=== PATIENT | female | born 1960 | race Asian ===

== ENCOUNTER 2017-01-17 11:34 | Inpatient (IN) | payer BC ==
[~2017-01-17] VITALS: Ht 154.9 cm; Wt 56.6 kg
[2017-01-18] MEDS ORDERED: VITA500T4 PO (06:50)
[2017-01-18] MEDS ORDERED: VITA1000 PO (06:50)
[2017-01-18] MEDS ORDERED: LACTCAP8 PO (06:50)
[2017-01-18] MEDS ORDERED: CALC600T25 PO (06:50)
[2017-01-18] MEDS ORDERED: [UNRECOGNIZED DRUG - CODE] PO (06:50)
[2017-01-18] MEDS ORDERED: NORV2.5T PO (06:53)
[2017-01-18 06:55] VITALS: BP 159/84; PULSE 66; RESP 16; TEMP 98.2; O2SAT 99
--- NOTE | 2017-01-18 06:58 | HHI.DCPOC ---
Discharge Care Plan Diagnosis: (1) Status post total knee replacement, right (2) Primary localized osteoarthrosis, lower leg Your Health Problems Are: Difficulty with ADL Goals to Promote Your Health * To prevent worsening of your condition and complications * To maintain your health at the optimal level Directions to Meet Your Goals Take your medications as prescribed Follow your dietary instruction Follow activity as directed Keep your appointments as scheduled Take your immunizations and boosters as scheduled If your symptoms worsen call your PCP, if no PCP go to Urgent Care Center or Emergency Room Smoking is Dangerous to Your Health. Avoid second hand smoke Call the 24-hour hour crisis hotline for domestic abuse at Lamonte Montoya Jan 18, 2017 06:58
--- NOTE | 2017-01-18 06:59 | HHI.FF ---
Face to Face Verification Diagnosis: (1) Primary localized osteoarthrosis, lower leg (2) Status post total knee replacement, right Physical Therapy Gait training, Transfer training, bed to chair Knee: Total knee Right LE Weight Bearing: WB as tolerated Right LE Range of Motion: Active ROM Nursing Nursing: Pratima teaching, Dressing changes Dressing Changes: Daily dressing change I have seen patient Shashi Gomez on 01/18/17. My clinical findings support the need for the requested home health care services because: Limited ability to care for self High risk of falls I certify that my clinical findings support that this patient is homebound because: Post-op weakness Unsteady gait/balance Lamonte Montoya Jan 18, 2017 06:59
[2017-01-18] MEDS ORDERED: CPMMACHINE (07:00)
[2017-01-18] MEDS ORDERED: WALKER WHEELS/F1 MIS (07:00)
[2017-01-18] MEDS ORDERED: COMMODE 3-IN-11 MIS (07:00)
[2017-01-18] MEDS ORDERED: DEXAMETHASONE SOD PHOS 20 MG/5 ML VIAL ONE (07:06)
[2017-01-18] MEDS ORDERED: SODIUM CHLOR 0.9% 250 ML INJ 250 ML ONE (07:06)
[2017-01-18] MEDS ORDERED: ceFAZolin 2 GM PREMIX 50 ML ONE (07:06)
[2017-01-18] MEDS ORDERED: VANCOMYCIN HCL 1000 MG VIAL ONE (07:06)
[2017-01-18] MEDS ORDERED: MIDAZOLAM HCL 5 MG/5 ML VIAL ONE (07:49)
[2017-01-18] MEDS ORDERED: GENTAMICIN SULFATE 80 MG/2 ML VIAL ONE (07:58)
[2017-01-18] MEDS ORDERED: BUPIVACAINE LIPOSOME PF 1.3% 20 ML VIAL ONE (08:05)
[2017-01-18] MEDS ORDERED: DEXAMETHASONE SOD PHOS PF 10 MG/ML VIAL IV ONE (08:06)
[2017-01-18] MEDS ORDERED: TRANEXAMIC ACID INJ 500 MG in SODIUM CHLORIDE 0.9% INJ 100 ML IV SCH (08:30)
[2017-01-18] MEDS ORDERED: BUPIVACAINE LIPOSO PF 1.3% INJ 20 ML in SODIUM CHLORIDE 0.9% INJ 40 ML PERIART SCH (08:30)
[2017-01-18] MEDS ORDERED: ceFAZolin 2 GM PREMIX 50 ML IV SCH (09:30)
[2017-01-18] MEDS ORDERED: ROPIVACAINE PERI-ARTICULAR INJECTION. PERIART SCH ×5 (09:30)
[2017-01-18] MEDS ORDERED: VANCOMYCIN 1000 MG/NS 250 ML (for <70 kg) IV SCH ×2 (09:30)
[2017-01-18] MEDS ORDERED: DEXAMETHASONE SOD PHOS 20 MG/5 ML VIAL IV SCH (10:00)
[2017-01-18] MEDS ORDERED: ZOLPIDEM TARTRATE 5 MG TAB PO PRN (10:15)
[2017-01-18] MEDS ORDERED: MORPHINE SULFATE 4 MG/ML INJ IV PUSH PRN (10:15)
[2017-01-18] MEDS ORDERED: BISACODYL 10 MG SUPP PR PRN (10:15)
[2017-01-18] MEDS ORDERED: TRANEXAMIC ACID INJ 0 MG in SODIUM CHLORIDE 0.9% INJ 100 ML IV SCH (10:15)
[2017-01-18] MEDS ORDERED: Post-op Orders (for Pharmacy) MISC XX ONE (10:15)
[2017-01-18] MEDS ORDERED: ALUMINUM/MAGNESIUM/SIMETH 30 ML CUP PO PRN (10:15)
[2017-01-18] MEDS ORDERED: ONDANSETRON HCL 4 MG/2 ML VIAL IVP PRN (10:15)
[2017-01-18] MEDS ORDERED: MAGNESIUM HYDROXIDE SUSP 30 ML CUP PO PRN (10:15)
[2017-01-18] MEDS ORDERED: NALOXONE HCL 0.4 MG/ML AMP IV PRN (10:15)
[2017-01-18] MEDS ORDERED: diphenhydrAMINE HCL 50 MG/ML VIAL IV PRN (10:15)
[2017-01-18] MEDS ORDERED: ACETAMINOPHEN/HYDROcodone 325 MG/5 MG TAB PO PRN (10:15)
[2017-01-18] MEDS ORDERED: SODIUM CHLORIDE 0.9% FLUSH 5 ML FLUSH IVF PRN (10:15)
--- NOTE | 2017-01-18 10:17 | PD.OP ---
cc: Lakhwinder Jeffrey MD Operative Report Date of Surgery: Jan 18, 2017 Preoperative Diagnosis: Right knee severe osteoarthritis Postoperative Diagnosis: Same Procedure: Right total knee arthroplasty Anesthesia: Adductor canal block and general Surgeon: Lakhwinder Jeffrey Digital Sales Executive(s): PATRICIA Bowen The surgical procedure was assisted by my Advanced Registered Nurse Practitioner. My TARGET NETWORK ANALYST presence was necessary throughout this case for the manipulation and positioning of the surgical extremity. My TARGET NETWORK ANALYST was assisting me throughout the duration of this procedure. The skill set of an Advance Registered Nurse Practitioner was medically necessary to complete this procedure. During the surgical case, the neurosurgical nurse was working at the back table and the Advance Registered Nurse Practitioner was directly assisting me. Operation and Findings: IMPLANTS: DePuy Attune: Patella: size 32. Femur, posterior stabilized size 5 narrow. Tibia, rotating platform size 3. Tibial insert, rotating platform, posterior stabilized size 8 mm thickness. ESTIMATED BLOOD LOSS: 100 cc TOURNIQUET TIME: 36 minutes at 250 mmHg pressure. JUSTIFICATION FOR PROCEDURE: The patient has end-stage osteoarthritis to the knee. There is an attached conservative measures pathway form in the chart that describes the nonoperative measures that were undertaken prior to consideration of surgical management. The patient understood the risks and benefits of surgical management. See my office notes for further details PROCEDURE: The patient was brought back to the operative theatre. Adequate anesthesia was obtained. The patient received intravenous vancomycin and Ancef. The lower extremity was prepped and draped in the usual sterile fashion.The leg was exsanguinated, the tourniquet was raised. A standard anterior incision was performed followed by medial parapatellar arthrotomy was performed. End-stage arthritis was identified. Osteotomy of the patella was performed. We drilled holes for the patella. We trialed the patella component. We placed an intramedullary guide into the distal femur. We ultimately resected 12 mm off of the distal femur in 5 degrees of valgus. The remnants of the ACL and PCL were resected. Osteotomy of the proximal tibia was performed, resecting 5 mm off of the medial side. This was done with 3 degrees of posterior slope using an extramedullary guide. The distal end of the guide was placed in the mid aspect of the ankle. The femur was sized, and four chamfer cuts were completed in 3 of external rotation. We then cut the central box in the distal femur to replace the PCL. We resected the remnants of the menisci and removed osteophytes off of the femur and tibia. We then trialed the knee. We punched the tibia for the keel, and then used standard technique to cement in components. Excess cement was removed. We trialed the knee again and the final polyethylene thickness was chosen to provide extension to 0 degrees, and flexion of 140 degrees to gravity. The ligaments were appropriately balanced. Lateral release was not necessary to obtain excellent patellofemoral tracking. The tourniquet was released and adequate hemostasis was obtained. An intra- articular injection of a ropivacaine cocktail was injected. The posterior knee was inspected for excess cement, which was removed. The final polyethylene was put into position after thorough irrigation. We then closed deep fascia with a #2 Stratafix followed by skin with 2-0 Vicryl followed by jono. Postop plan is to weight-bear as tolerated. DVT prophylaxis will be performed with Bri, SHAD deshpande, early mobilization, and Lovenox followed by aspirin. Lakhwinder Jeffrey MD Jan 18, 2017 10:17
[2017-01-18] MEDS ORDERED: ENOX40P SQ (10:19)
[2017-01-18] MEDS ORDERED: ASPI325T PO (10:19)
[2017-01-18] MEDS ORDERED: NORC5TAB PO (10:19)
[2017-01-18] MEDS ORDERED: DO NOT ADM ANY ANTICOAGULANT DRUGS XX PRN (10:44)
[2017-01-18] MEDS ORDERED: PILL SPLITTER OTHER PRN (10:45)
[2017-01-18] MEDS ORDERED: fentaNYL CITRATE 250 MCG/5 ML AMP ONE (10:46)
[2017-01-18] MEDS: SODIUM CHLOR 0.9% 1000 ML INJ 1,000 ML IV SCH ×2 (10:50→20:35)
[2017-01-18] MEDS ORDERED: *morphine SULFATE 8 MG/ML PERIprocedure ONLY ONE ×2 (10:55→13:03)
--- NOTE | 2017-01-18 11:55 | RADRPT ---
EXAM DATE/TIME: 01/18/2017 10:52 [facility] COMPARISON: No previous studies available for comparison. INDICATIONS : Post op right knee surgery. MEDICAL HISTORY : None. SURGICAL HISTORY : None. ENCOUNTER: Initial ACUITY: 1 day PAIN SCORE: 2/10 LOCATION: Right knee FINDINGS: Patient is immediately postop right total knee arthroplasty. Alignment appears normal. No fracture or other acute complication demonstrated. CONCLUSION: Expected radiographic appearance right total knee arthroplasty. No acute complication demonstrated. Siva Zhang MD on January 18, 2017 at 11:53 Board Certified Radiologist. This report was verified electronically.
[2017-01-18] MEDS ORDERED: PROPOFOL 200 MG/20 ML AMP IV ONE (12:00)
[2017-01-18] MEDS ORDERED: ONDANSETRON HCL 4 MG/2 ML VIAL IV PUSH ONE (12:00)
[2017-01-18] MEDS ORDERED: ePHEDrine/NS 25 MG/5 ML SYR IV ONE (12:00)
[2017-01-18 16:00] VITALS: BP 121/79; PULSE 84; RESP 16; TEMP 97.1; O2SAT 100
--- NOTE | 2017-01-18 17:31 | PD.CONS ---
HPI Service [facility] Consult Requested By Dr. Jeffrey Reason for Consult medical management Primary Care Physician Dennis Singh MD Diagnoses: History of Present Illness This is a 56 year female with hx of OA, HTN. Pt. admitted for elective surgery. Pt. underwent right TKA. Tolerated procedure well, minimal pain. Having some nausea, no vomiting. She is usually in good health, no recent fever, chills. Hospitalists consult requested for medical management (Heidi Reid) Past Family Social History Past Medical History Hypertension Osteoarthritis Past Surgical History Dental extraction Reported Medications Reported Meds & Active Scripts Active [place] (Hydrocodone-Acetaminophen) 5-325 mg Tab 1-2 Tab PO Q4H PRN Aspirin 325 Mg Tab 325 Mg PO DAILY Start Aspirin after Lovenox is completed. Lovenox Inj (Enoxaparin Sodium) 40 Mg/0.4 Ml Syr 40 Mg SQ DAILY Start Aspirin after Lovenox is completed. Reported Norvasc (Amlodipine Besylate) 2.5 Mg Tab 2.5 Mg PO DAILY Calcium (Calcium Carbonate) 600 Mg Tab 1 Tab PO DAILY Gas Relief Extra Strength (Simethicone) 125 Mg Cap 1 Cap PO DAILY Probiotic (Lactobacillus Acidophilus) 1 Cap Cap 1 Cap PO BID Vitamin B-12 (Cyanocobalamin) 500 Mcg Tab 500 Mcg PO DAILY Vitamin D-1000 (Cholecalciferol) 1,000 Unit Tab 1,000 Units PO DAILY (Heidi Reid) Allergies: Coded Allergies: No Known Allergies (Unverified , 01/18/17) Active Ordered Medications Inpatient Medications Acetaminophen/ Hydrocodone Bitart ([place] 5-325 Mg) 2 tab Q4H PRN PO PAIN SCALE 5 TO 10; Start 01/18/17 at 10:15 Al Hydrox/Mg Hydrox/Simethicone (Mag-Al Plus Susp Liq) 30 ml Q6H PRN PO INDIGESTION; Start 01/18/17 at 10:15 Amlodipine Besylate 2.5 mg 2.5 mg DAILY PO ; Start 01/19/17 at 09:00 Bisacodyl (Dulcolax Supp) 10 mg DAILY PRN ND CONSTIPATION; Start 01/18/17 at 10: 15 Cefazolin Sodium/ Dextrose 50 ml @ 100 mls/hr WIRE CUTTER IV ; Start 01/18/17 at 09 :30; Stop 01/21/17 at 09:29 Cefazolin Sodium/ Sodium Chloride (Ancef Inj/NS Inj) 100 ml @ 200 mls/hr Q6H IV Last administered on 01/18/17t 13:45; Start 01/18/17 at 14:00; Stop 01/19/17 at 02:29 Dexamethasone Sodium Phosphate (Decadron Inj) 10 mg ONCE ONCE IV ; Start at 07:45; Stop 01/19/17 at 07:46 Diphenhydramine HCl (Benadryl Inj) 25 mg Q6H PRN IV ITCHING; Start 01/18/17 at 10:15 Docusate Sodium (Colace) 100 mg BID PO ; Start 01/19/17 at 21:00 Enoxaparin Sodium (Lovenox Inj) 40 mg Q24H SQ ; Start 01/19/17 at 10:00; Stop at 10:01 IV Flush (NS Flush) 2 ml UNSCH PRN IVF FLUSH AFTER USING IV ACCESS; Start at 10:15 IV Flush 2 ml 2 ml BID IVF ; Start 01/18/17 at 21:00 Magnesium Hydroxide (Milk Of Magnesia Liq) 30 ml DAILY PRN PO CONSTIPATION; Start 01/18/17 at 10:15 Miscellaneous (Pill Splitter) 1 ea UNSCH PRN OTHER SEE LABEL COMMENTS; Start at 10:45 Miscellaneous Information ALL NURSING DEPARTME... UNSCH PRN XX SEE LABEL COMMENTS; Start 01/18/17 at 10:44; Stop 01/19/17 at 10:43 Miscellaneous Information (Post-op Orders (for Pharmacy)) STAT ONCE XX ; Start 01/18/17 at 10:15; Stop 01/18/17 at 10:33; Status DC Morphine Sulfate (Morphine Inj) 2 mg Q3H PRN IV PUSH pain greater than 5; Start 01/18/17 at 10:15 Multivitamins/ Minerals Therapeutic (Theragran M Tab) 1 tab BID PO ; Start at 21:00; Stop 03/20/17 at 20:59 Naloxone HCl (Narcan Inj) 0.4 mg UNSCH PRN IV RESPIRATORY RATE LESS THAN 10; Start 01/18/17 at 10:15 Ondansetron HCl (Zofran Inj) 4 mg Q6H PRN IVP NAUSEA OR VOMITING Last administered on 01/18/17 16:14; Start 01/18/17 at 10:15 Povidone Iodine 1 applic 1 applic ONCE TOP ; Start 01/18/17 at 09:30; Stop at 09:29 Ropivacaine/ Ketorolac Tromethamine/ Epinephrine HCl/ Clonidine/Sodium Chloride (Naropin 0.5% Pf Inj/Toradol Inj/ Adrenalin (1:1000) Inj/ Duraclon Inj/NS Inj) 100 ml @ 200 mls/hr ONCE PERIART Last administered on 01/18/17 09:45; Start at 09:30; Stop 01/18/17 at 15:30; Status DC Sodium Chloride (NS 1000 ml Inj) 1,000 ml @ 100 mls/hr Q10H IV Last administered on 01/18/17 10:50; Start 01/18/17 at 11:00 Tranexamic Acid/ Sodium Chloride (Cyklokapron Inj/ NS Inj) 105 ml @ 200 mls/hr Q3H IV Last administered on 01/18/17 08:50; Start 01/18/17 at 08:30; Stop at 12:03; Status DC Vancomycin HCl 1000 mg/Sodium Chloride 250 ml @ 250 mls/hr WIRE CUTTER IV ; Start 01/18/17 at 09:30; Stop 01/21/17 at 09:29 Zolpidem Tartrate (Ambien) 5 mg HS PRN PO SLEEP; Start 01/18/17 at 10:15 (Heidi Reid) Physical Exam Vital Signs Vital Signs Date Time Temp Pulse Resp B/P Pulse Ox O2 Delivery O2 Flow Rate FiO2 01/18/17 15:39 98.7 84 16 120/93 99 Nasal Cannula 2 01/18/17 13:36 98.0 82 16 130/71 96 Nasal Cannula 2 01/18/17 13:00 96.2 94 16 158/90 98 Nasal Cannula 2 01/18/17 12:00 83 16 146/84 98 Nasal Cannula 2 01/18/17 11:30 94 16 156/88 98 Nasal Cannula 2 01/18/17 11:15 104 16 154/82 99 Nasal Cannula 2 01/18/17 11:00 106 16 150/84 99 Nasal Cannula 2 01/18/17 10:45 86 16 155/79 97 Nasal Cannula 2 01/18/17 10:37 97.6 112 16 158/96 99 Nasal Cannula 2 01/18/17 06:55 98.2 66 16 159/84 99 Physical Exam GENERAL: This is a well-nourished, well-developed patient, in no apparent distress. SKIN: No rashes, ecchymoses or lesions. Cool and dry. HEAD: Atraumatic. Normocephalic. No temporal or scalp tenderness. EYES: Pupils equal round and reactive. Extraocular motions intact. No scleral icterus. No injection or drainage. ENT: Nose without bleeding, purulent drainage or septal hematoma. Throat without erythema, tonsillar hypertrophy or exudate. Uvula midline. Airway patent. NECK: Trachea midline. No JVD or lymphadenopathy. Supple, nontender, no meningeal signs. CARDIOVASCULAR: Regular rate and rhythm without murmurs, gallops, or rubs. RESPIRATORY: Clear to auscultation. Breath sounds equal bilaterally. No wheezes , rales, or rhonchi. GASTROINTESTINAL: Abdomen soft, non-tender, nondistended. No hepato-splenomegaly , or palpable masses. No guarding. MUSCULOSKELETAL: Right leg in CPM, intact sensation to right foot, right pedal pulse 2+. Able to dorsiflex right foot. No other joint abnormalities. Left pedal pulse 2+ NEUROLOGICAL: Awake alert oriented 3. No focal deficits. Laboratory Laboratory Tests Test 01/18/17 01/18/17 07:00 08:07 Blood Type B POSITIVE B POSITIVE Antibody Screen NEGATIVE Crossmatch Leukocyte-Reduced Red Blood Cells Blood Bank Comment (Heidi Reid) Imaging Last Impressions Knee X-Ray 01/18/17 1012 Signed Impressions: Service Date/Time: Wednesday, January 18, 2017 10:52 - CONCLUSION: Expected radiographic appearance right total knee arthroplasty. No acute complication demonstrated. Siva Zhang MD (Heidi Reid) A/P Diagnosis: (1) Status post total knee replacement, right (2) Primary localized osteoarthrosis, lower leg (3) HTN (hypertension) Assessment and Plan Thanks you for this consultation 56-year-old male with history of osteoarthritis, status post right total knee arthroplasty. -Continue postoperative orthopedic care Physical therapy Lovenox for DVT prophylaxis History hypertension, stable Continue with home medications Monitor BP closely Repeat labs in the morning Lovenox for DVT prophylaxis Plan of care discussed with the patient, attending and registered nurse. Further management of the patient will be dependent on the hospital course This patient was seen by myself and Dr. Menezes, this consultation is written on his behalf (Heidi Reid) Assessment and Plan Patient seen and examined Thank you for this consult Plan as follows Pain management Physical therapy Bowel regimen Follow labs Keep hemoglobin above 8 Replace electrolytes as needed Discussed with patient Discussed with nurse We will follow daily while hospitalized (Edith Menezes MD) Problem Qualifiers (1) Primary localized osteoarthrosis, lower leg: Qualified Code: M17.11 - Primary localized osteoarthrosis, lower leg, right (2) HTN (hypertension): Qualified Code: I10 - Essential hypertension Heidi Reid Jan 18, 2017 17:31 Edith Menezes MD Jan 18, 2017 18:15
--- NOTE | 2017-01-18 18:29 | EKG ---
Date Performed: 01/18/2017 Time Performed: 07:03:07 PTAGE: 56 years EKG: Sinus rhythm LOW QRS VOLTAGE IN PRECORDIAL LEADS BORDERLINE ECG NO PREVIOUS TRACING DOCTOR: Gordo Samayoa Interpretating Date/Time 01/18/2017 18:28:31
[2017-01-18 20:25] VITALS: BP 144/72; PULSE 73; RESP 19; TEMP 96.5; O2SAT 100
[2017-01-18] MEDS: SODIUM CHLORIDE 0.9% FLUSH 5 ML FLUSH IVF SCH (20:31)
[2017-01-18 20:38] VITALS: O2SAT 95
[2017-01-19] VITALS (7 sets, daily range): BP systolic 96–141; BP diastolic 60–75; PULSE 64–94; RESP 16–19; TEMP 96–98.2; O2SAT 96–100
[2017-01-19 06:22] LABS: HEMATOCRIT 30.3 % (35.0-46.0); MEAN CELL VOLUME 77.3 FL (80.0-100.0); MEAN CORPUSCULAR HEMOGLOBIN 24.3 PG (27.0-34.0); MEAN CORPUSCULAR HGB CONC 31.4 % (32.0-36.0); PLATELET COUNT 276 TH/MM3 (150-450); RED BLOOD COUNT 3.92 MIL/MM3 (4.00-5.30); RED CELL DISTRIBUTION WIDTH 15.2 % (11.6-17.2); WHITE BLOOD COUNT 14.7 TH/MM3 (4.0-11.0)
[2017-01-19 06:28] LABS: REVIEW FLAG FINAL
[2017-01-19 06:49] LABS: BICARBONATE 27.7 MEQ/L (21.0-32.0); POTASSIUM 4.1 MEQ/L (3.5-5.1)
[2017-01-19] MEDS ORDERED: DEXAMETHASONE SOD PHOS 20 MG/5 ML VIAL IV ONE (07:45)
[2017-01-19] MEDS: POVIDONE IODINE 7.5% SCRUB 118 ML BOTTLE TOP SCH (09:30)
[2017-01-19] MEDS: amLODIPine BESYLATE 5 MG TAB PO SCH (10:30)
[2017-01-19] MEDS: ENOXAPARIN SODIUM 40 MG/0.4 ML SYRINGE SQ SCH (10:30)
[2017-01-19] MEDS: SODIUM CHLORIDE 0.9% FLUSH 5 ML FLUSH IVF SCH ×2 (10:31→20:10)
[2017-01-19] MEDS: SODIUM CHLOR 0.9% 1000 ML INJ 1,000 ML IV SCH ×2 (10:46→17:00)
--- NOTE | 2017-01-19 10:47 | HHI.PR ---
Subjective Remarks Up in chair Alert cooperative Sensation of right knee numbness Appetite good No Nausea vomiting Objective Objective Results - Vital Signs Date Time Temp Pulse Resp B/P Pulse Ox O2 Delivery O2 Flow Rate FiO2 01/19/17 08:18 96.7 94 16 135/75 100 01/19/17 04:26 96.0 68 18 122/73 100 01/19/17 00:36 96.0 64 18 96/60 100 01/18/17 20:38 95 Nasal Cannula 2.00 01/18/17 20:25 96.5 73 19 144/72 100 01/18/17 16:00 97.1 84 16 121/79 100 01/18/17 15:39 98.7 84 16 120/93 99 Nasal Cannula 2 01/18/17 13:36 98.0 82 16 130/71 96 Nasal Cannula 2 01/18/17 13:00 96.2 94 16 158/90 98 Nasal Cannula 2 01/18/17 12:00 83 16 146/84 98 Nasal Cannula 2 01/18/17 11:30 94 16 156/88 98 Nasal Cannula 2 01/18/17 11:15 104 16 154/82 99 Nasal Cannula 2 01/18/17 11:00 106 16 150/84 99 Nasal Cannula 2 01/18/17 10:45 86 16 155/79 97 Nasal Cannula 2 I/O 01/18/17 01/18/17 01/18/17 01/19/17 01/19/17 01/19/17 07:00 15:00 23:00 07:00 15:00 23:00 Intake Total 1319 ml 1024 ml 480 ml Output Total 700 ml 1400 ml 800 ml Balance 619 ml -376 ml -320 ml Intake Oral 100 ml 750 ml 480 ml IV Total 419 ml 274 ml Other 800 ml Output Urine Total 650 ml 1400 ml 800 ml Estimated Blood Loss 50 ml # Bowel Movements 0 0 Result Diagram: 01/19/1751901/19/17 0520 ROS General: Weakness (generalized postop), Other (10 point ROS done. Mild dizziness, otherwise systems unremarkable) Neuro/MS: Lightheaded Physical Exam Physical Exam PHYSICAL EXAMINATION GENERAL: This is a slim, well-developed, well-nourished female who appears to be in no acute distress. She is alert and awake, talkative HEAD: Normocephalic without any lesion or mass noted. Facial features appear symmetric. OROPHARYNGEAL: Oropharynx without erythema or edema. NECK: Supple. No nuchal rigidity or lymphadenopathy. Trachea midline without deviation. CARDIAC: Regular rhythm, regular rate, S1 and S2 are heard. Murmur none no gallops or rubs. LUNGS: Clear to auscultation bilaterally. No wheeze, no rhonchi or rale. No use of accessory muscles on inspiration or expiration. ABDOMEN: Soft, nontender, no organomegaly or masses. Bowel sounds are heard in all four quadrants. No rebound. No guarding. EXTREMITIES: Mild edema right lower leg, none at right ankle Pulses equal bilateral. No cyanosis. NEUROLOGICAL: Patient mood and affect appropriate. No focal deficit SKIN:Warm and moist, dry Objective Remarks I got a little lightheaded when I first got up but I feel better now A/P Assessment and Plan (1) Status post total knee replacement, right (2) Primary localized osteoarthrosis, lower leg (3) HTN (hypertension) 4. Dizziness, transient, possible orthostatic hypotension 56-year-old male with history of osteoarthritis, status post right total knee arthroplasty. -Continue postoperative orthopedic care including pain management Physical therapy Lovenox postop Mild dizziness, when out of bed. Sitting in chair for a few minutes. Sensation past for now. BP systolic noted in the 90s during this event. Encouraged by mouth fluids, safety measures getting up slowly. Will monitor orthostatic BP went up today Monitor labs, dietary intake, vital signs which are normal ranges now. Discharge Planning Probable rehabilitation Discussed With: Nurse, Family (patient), Other (Dr. Menezes, seen on his behalf) Betty Singh Jan 19, 2017 10:47
--- NOTE | 2017-01-19 13:07 | PD.ORT.PN ---
Subjective Post Op Day #: 1 Subjective Remarks Patient is resting in bed using CPM. Patient is c/o moderate right calf pain and mild knee pain. Family at bedside. Objective Vitals Vital Signs Date Time Temp Pulse Resp B/P Pulse Ox O2 Delivery O2 Flow Rate FiO2 01/19/17 10:16 97 21 01/19/17 08:18 96.7 94 16 135/75 100 01/19/17 04:26 96.0 68 18 122/73 100 01/19/17 00:36 96.0 64 18 96/60 100 01/18/17 20:38 95 Nasal Cannula 2.00 01/18/17 20:25 96.5 73 19 144/72 100 01/18/17 16:00 97.1 84 16 121/79 100 01/18/17 15:39 98.7 84 16 120/93 99 Nasal Cannula 2 01/18/17 13:36 98.0 82 16 130/71 96 Nasal Cannula 2 01/18/17 13:00 96.2 94 16 158/90 98 Nasal Cannula 2 I/O 01/18/17 01/18/17 01/18/17 01/19/17 01/19/17 01/19/17 07:00 15:00 23:00 07:00 15:00 23:00 Intake Total 1319 ml 1024 ml 480 ml Output Total 700 ml 1400 ml 800 ml Balance 619 ml -376 ml -320 ml Intake Oral 100 ml 750 ml 480 ml IV Total 419 ml 274 ml Other 800 ml Output Urine Total 650 ml 1400 ml 800 ml Estimated Blood Loss 50 ml # Bowel Movements 0 0 Result Diagram: 01/19/17 0520 01/19/17 0520 Procedures Right TKA Objective Remarks The patient's dressing was changed with scant serosanguineous drainage. Incision is well approximated with surgical clips intact. No redness or s/s of infection. EHL/TA/G intact. 2+ pedal pulse. Calf is mildly swollen and tender to palpation. Mild swelling. + SILT. Assessment & Plan Ortho Post Op Day #: 1 Problem List: Assessment and Plan POD #1: right TKA 1. WBAT RLE 2. Lovenox for DVT prophylaxis 3. Ice to the right knee PRN 4. US to RLE to r/o DVT secondary to calf pain and swelling 5. Anticipatory discharge home with home health on Monday. Lamonte Montoya Jan 19, 2017 13:07
--- NOTE | 2017-01-19 16:58 | RADRPT ---
EXAM DATE/TIME: 01/19/2017 15:45 [facility] COMPARISON: No previous studies available for comparison. INDICATIONS : Right leg pain. MEDICAL HISTORY : Hypertension. SURGICAL HISTORY : Right knee surgery. ENCOUNTER: Initial ACUITY: 1 day PAIN SCORE: 7/10 LOCATION: Right leg TECHNIQUE: Venous ultrasound of the leg was performed from the inguinal ligament to the proximal calf. Real-time, color Doppler and spectral tracing, compression and augmentation techniques were us ed. FINDINGS: There is normal compressibility of the deep venous system from the inguinal region to the proximal ca lf. No echogenic clot is seen in the lumen of the common femoral, femoral, popliteal, and posterior tibial veins. There is a normal response of the venous system to proximal and distal augmentation an d respiration. CONCLUSION: No evidence of DVT. Rock Sandy MD on January 19, 2017 at 16:55 Board Certified Radiologist. This report was verified electronically.
[2017-01-19] MEDS: ACETAMINOPHEN/HYDROcodone 325 MG/5 MG TAB PO PRN (20:09)
[2017-01-19] MEDS: MULTIVITAMINS/MINERALS THERAPEUTIC TAB PO SCH (20:09)
[2017-01-19] MEDS: DOCUSATE SODIUM 100 MG CAP PO SCH (20:09)
[2017-01-20 00:21] VITALS: BP 118/62; PULSE 76; RESP 18; TEMP 96.5; O2SAT 98
[2017-01-20] MEDS: SODIUM CHLOR 0.9% 1000 ML INJ 1,000 ML IV SCH (03:00)
[2017-01-20] MEDS: ACETAMINOPHEN/HYDROcodone 325 MG/5 MG TAB PO PRN ×3 (05:26→18:41)
[2017-01-20 08:00] VITALS: BP 150/82; PULSE 67; RESP 17; TEMP 97; O2SAT 100
[2017-01-20] MEDS: SODIUM CHLORIDE 0.9% FLUSH 5 ML FLUSH IVF SCH (09:00)
[2017-01-20] MEDS: POVIDONE IODINE 7.5% SCRUB 118 ML BOTTLE TOP SCH (09:30)
[2017-01-20 10:01] LABS: HEMATOCRIT 28.5 % (35.0-46.0); MEAN CELL VOLUME 76.6 FL (80.0-100.0); MEAN CORPUSCULAR HEMOGLOBIN 24.4 PG (27.0-34.0); MEAN CORPUSCULAR HGB CONC 31.9 % (32.0-36.0); PLATELET COUNT 280 TH/MM3 (150-450); RED BLOOD COUNT 3.72 MIL/MM3 (4.00-5.30); RED CELL DISTRIBUTION WIDTH 15.5 % (11.6-17.2); WHITE BLOOD COUNT 11.7 TH/MM3 (4.0-11.0)
[2017-01-20 10:04] LABS: REVIEW FLAG FINAL
[2017-01-20] MEDS: DOCUSATE SODIUM 100 MG CAP PO SCH (10:32)
[2017-01-20] MEDS: amLODIPine BESYLATE 5 MG TAB PO SCH (10:32)
[2017-01-20] MEDS: MULTIVITAMINS/MINERALS THERAPEUTIC TAB PO SCH (10:32)
[2017-01-20] MEDS: ENOXAPARIN SODIUM 40 MG/0.4 ML SYRINGE SQ SCH (10:32)
[2017-01-20 10:56] LABS: ALKALINE PHOSPHATASE 78 U/L (45-117); ALT (GPT) 20 U/L (10-53); ANION GAP 8 MEQ/L (5-15); AST (GOT) 14 U/L (15-37); BICARBONATE 28.6 MEQ/L (21.0-32.0); BLOOD UREA NITROGEN 15 MG/DL (7-18); CHLORIDE 102 MEQ/L (98-107); GLOMERULAR FILTRATION RATE 89 ML/MIN (>89); INDIRECT BILIRUBIN 0.3 MG/DL (0.0-0.8); MAGNESIUM 2.3 MG/DL (1.5-2.5); POTASSIUM 3.2 MEQ/L (3.5-5.1); SODIUM (NA) 139 MEQ/L (136-145); TOTAL BILIRUBIN ADULT 0.4 MG/DL (0.2-1.0); TRANSFERRIN IRON PROFILE 251 MG/DL (200-360)
[2017-01-20 12:00] VITALS: BP 151/74; PULSE 75; RESP 17; TEMP 97.1; O2SAT 100
[2017-01-20] MEDS ORDERED: POTASSIUM CHLORIDE 25 MEQ EFFERVESCENT TAB PO ONE ×3 (13:30→18:00)
--- NOTE | 2017-01-20 15:09 | PD.ORT.PN ---
Subjective Post Op Day #: 2 Subjective Remarks Patient is resting in bed with mild knee pain. Patient notes less right calf pain. Family at bedside. Objective Vitals Vital Signs Date Time Temp Pulse Resp B/P Pulse Ox O2 Delivery O2 Flow Rate FiO2 01/20/17 12:00 97.1 75 17 151/74 100 01/20/17 08:15 21 01/20/17 08:00 97.0 67 17 150/82 100 01/20/17 00:21 96.5 76 18 118/62 98 01/19/17 20:21 97.0 84 19 141/65 96 01/19/17 16:20 98.2 82 16 129/70 98 I/O 01/19/17 01/19/17 01/19/17 01/20/17 01/20/17 01/20/17 07:00 15:00 23:00 07:00 15:00 23:00 Intake Total 480 ml 860 ml 480 ml 720 ml Output Total 800 ml Balance -320 ml 860 ml 480 ml 720 ml Intake Oral 480 ml 860 ml 480 ml 720 ml Output Urine Total 800 ml # Voids 6 2 1 # Bowel Movements 0 0 0 0 Result Diagram: 01/20/1791301/20/17913 Procedures Right TKA Objective Remarks The patient's dressing was changed with no drainage. Incision is well approximated with surgical clips intact. No redness or s/s of infection. EHL/ TA/G intact. 2+ pedal pulse. Calf is mildly swollen and nontender to palpation. Mild swelling. + SILT. Assessment & Plan Ortho Post Op Day #: 2 Problem List: Assessment and Plan POD #2: right TKA 1. WBAT RLE 2. Lovenox for DVT prophylaxis 3. Ice to the right knee PRN 4. US to RLE is negative for DVT. 5. Plan is for discharge home with home health today. Lamonte Montoya Jan 20, 2017 15:09
--- NOTE | 2017-01-20 15:13 | HHI.PR ---
Subjective Remarks Up in chair and bed Alert cooperative Pain management Appetite good Objective Objective Results - Vital Signs Date Time Temp Pulse Resp B/P Pulse Ox O2 Delivery O2 Flow Rate FiO2 01/20/17 12:00 97.1 75 17 151/74 100 01/20/17 08:15 21 01/20/17 08:00 97.0 67 17 150/82 100 01/20/17 00:21 96.5 76 18 118/62 98 01/19/17 20:21 97.0 84 19 141/65 96 01/19/17 16:20 98.2 82 16 129/70 98 I/O 01/19/17 01/19/17 01/19/17 01/20/17 01/20/17 01/20/17 07:00 15:00 23:00 07:00 15:00 23:00 Intake Total 480 ml 860 ml 480 ml 720 ml Output Total 800 ml Balance -320 ml 860 ml 480 ml 720 ml Intake Oral 480 ml 860 ml 480 ml 720 ml Output Urine Total 800 ml # Voids 6 2 1 # Bowel Movements 0 0 0 0 Result Diagram: 01/20/1791301/20/1714 ROS General: Weakness (generalized postop), Other (10 point ROS done, mild generalized weakness status postop orthosis or, pain management, no dizziness, other systems negative or unremarkable) Physical Exam Physical Exam PHYSICAL EXAMINATION GENERAL: This is a well-developed, well-nourished female who appears to be in no acute distress. She is alert and awake, HEAD: Normocephalic without any lesion or mass noted. Facial features appear symmetric. OROPHARYNGEAL: Oropharynx without erythema or edema. NECK: Supple. No nuchal rigidity or lymphadenopathy. Trachea midline without deviation. CARDIAC: Regular rhythm, regular rate, S1 and S2 are heard. Murmur none; no gallops or rubs. LUNGS: Clear to auscultation bilaterally. No wheeze, no rhonchi No use of accessory muscles on inspiration or expiration. ABDOMEN: Soft, nontender, no organomegaly or masses. Bowel sounds are heard in all four quadrants. No rebound. No guarding. EXTREMITIES: Mild edema right upper leg. Seizures and site clean dry and intact dressing secure. Pulses equal bilateral. cyanosis. NEUROLOGICAL: Patient mood and affect appropriate. No focal deficit SKIN:Warm and moist Objective Remarks I'm hoping to go home today A/P Assessment and Plan (1) Status post total knee replacement, right (2) Primary localized osteoarthrosis, lower leg (3) HTN (hypertension) 4. Dizziness, transient, possible orthostatic hypotension 56-year-old male with history of osteoarthritis, status post right total knee arthroplasty. -Continue postoperative orthopedic care including pain management Physical therapy Lovenox postop No further complaints of dizziness Sitting in chair and ambulate with PT today Will monitor orthostatic BP went up today, systolic blood pressure 150/82 diastolic Monitor labs, dietary intake, vital signs which are normal ranges now. Hypokalemia, extra dose by mouth potassium given. Reviewed labs and vital signs. BBC count 11.7 Discharge Planning Probable rehabilitation Discussed With: Nurse, Family (patient), Other (Dr. Menezes, seen on his behalf) Betty Singh Jan 20, 2017 15:13
[2017-01-20 16:00] VITALS: BP 118/66; PULSE 73; RESP 19; TEMP 98.7; O2SAT 98
[2017-01-20 18:14] VITALS: O2SAT 98
--- NOTE | 2017-01-22 21:29 | HHI.DS ---
Discharge Summary Admission Date Jan 18, 2017 at 05:21 Discharge Date: Jan 20, 2017 Admitting Diagnosis Primary localized OA, lower leg Status post total knee replacement, right Diagnosis: (1) Primary localized osteoarthrosis, lower leg Diagnosis: Principal (2) Status post total knee replacement, right Diagnosis: Principal Procedures Right TKA Brief History This is a 56 year old female patient with severe OA of the right knee CBC/BMP: 01/20/17 0914 01/20/17 0914 Significant Findings Laboratory Tests Test 01/20/17 09:14 White Blood Count 11.7 TH/MM3 (4.0-11.0) Red Blood Count 3.72 MIL/MM3 (4.00-5.30) Hemoglobin 9.1 GM/DL (11.6-15.3) Hematocrit 28.5 % (35.0-46.0) Mean Corpuscular Volume 76.6 FL (80.0-100.0) Mean Corpuscular Hemoglobin 24.4 PG (27.0-34.0) Mean Corpuscular Hemoglobin 31.9 % Concent (32.0-36.0) Potassium Level 3.2 MEQ/L (3.5-5.1) Random Glucose 125 MG/DL (74-106) Calcium Level 8.1 MG/DL (8.5-10.1) Phosphorus Level 2.0 MG/DL (2.5-4.9) Iron Level 35 MCG/DL (50-170) Percent Iron Saturation 10.0 % (20-50) Aspartate Amino Transf 14 U/L (15-37) (AST/SGOT) Albumin 2.8 GM/DL (3.4-5.0) Vitamin B12 Level 1825 PG/ML (193-986) PE at Discharge The patient's dressing was changed with no drainage. Incision is well approximated with surgical clips intact. No redness or s/s of infection. EHL/ TA/G intact. 2+ pedal pulse. Calf is mildly swollen and nontender to palpation. Mild swelling. + SILT. Hospital Course The patient was admitted to the hospital for severe OA of the right knee to have a right TKA. The patient's surgery went well with no complications. The patient is WBAT on the right LE. The patient is on a regular diet. The patient is on blood thinners for DVT prophylaxis. The patient was discharged home with home health and will f/u with Dr. Jeffrey in 1-2 weeks. Pt Condition on Discharge: Stable Discharge Disposition: Disch w/ Home Health Serv Discharge Instructions Diet Instructions: As Tolerated, No Restrictions Activities You Can Perform: Weight Bearing as Randall Activities to Avoid: Strenuous Activity Follow up Referrals: Orthopedics with Lakhwinder Jeffrey MD New Medications: Aspirin (Aspirin) 325 Mg Tab 325 MG PO DAILY Start Aspirin after Lovenox is completed. Prevent Blood Clot # 30 Ref 0 TAB Commode 3-in-1 (Commode 3-in-1) 1 Mis Mis 1 EA .ROUTE DIRECTED #1 Ref 0 EA CPM-Continuous Passive Motion Machine (CPM-Continuous Passive Motion Machine) 1 Ea Device 1 EA .ROUTE DIRECTED #1 Ref 0 EA Enoxaparin Inj (Lovenox Inj) 40 Mg/0.4 Ml Syr 40 MG SQ DAILY Start Aspirin after Lovenox is completed. Blood Clot Prevention # 10 Ref 0 SYRINGE Hydrocodone-Acetaminophen ([place]) 5-325 mg Tab 1-2 TAB PO Q4H PRN PAIN #60 Ref 0 TAB Walker with Front Wheels (Walker with Front Wheels) 1 Mis Mis 1 EA .ROUTE DIRECTED #1 Ref 0 EA Continued Medications: Amlodipine (Norvasc) 2.5 Mg Tab 2.5 MG PO DAILY Blood Pressure Management #30 Ref 0 TAB Calcium Carbonate (Calcium) 600 Mg Tab 1 TAB PO DAILY Cholecalciferol (Vitamin D-1000) 1,000 Unit Tab 1000 UNITS PO DAILY Nutritional Supplement #1 Ref 0 BOTTLE Cyanocobalamin (Vitamin B-12) 500 Mcg Tab 500 MCG PO DAILY Nutritional Supplement #1 Ref 0 BOTTLE Lactobacillus Acidophilus (Probiotic) 1 Cap Cap 1 CAP PO BID Nutritional Supplement #90 Ref 0 CAP Simethicone (Gas Relief Extra Strength) 125 Mg Cap 1 CAP PO DAILY Lamonte Montoya Jan 22, 2017 21:29
== END 2017-01-20 18:56 | disposition home health service (06) | DRG 470 ==
LOC: HSDI 01-18 05:21 → N06A 01-18 15:46
PROVIDERS: ADMIT Orthopaedic Surgery; ATTEND Orthopaedic Surgery
PROC: 3E0T3CZ (ICD-10-PCS; 2017-01-18)
PROC: 0SRC0J9 Replacement of Right Knee Joint with Synthetic Substitute, Cemented, Open Approach (ICD-10-PCS; principal; 2017-01-18 08:29)
DX: M17.11 Unilateral primary osteoarthritis, right knee (principal); I10 Essential (primary) hypertension; I95.1 Orthostatic hypotension; R42 Dizziness and giddiness; M79.661 Pain in right lower leg; E87.6 Hypokalemia
CPT/HCPCS: 73560; 80048; 80076; 82607; 83540; 83550; 83735; 84100; 85027; 86850; 86900; 86901; 86920; 93005; 93971; 94150; C1776; C9290; J0171; J0690; J0735; J1100; J1580; J1650; J1885; J2250; J2270; J2405; J2795; J3010; J3370; J7030; J7050; L1830